=== PATIENT | male | born 1950 | race Caucasian/White ===

== ENCOUNTER → 2017-02-05 | Outpatient (CLI) | payer OTHER ==
[~2017-02-05] MED LIST: ASPCH81X PO; ATOR-22 PO; BUPR-79 PO; DIETARY SUPPLEMENT PO; FLUT50SP37 NAE; HYG/25 PO; OMEG10007 PO; PRLSR20 PO; VITAMIN E PO
[2017-02-05 18:02] LABS: BASO % 1.4 %; BASO ABS # 0.11 K/uL (0-0.2); COMPLETE YES; EOS % 5.5 %; HEMATOCRIT 44.6 % (42-52); IG% 0.3 %; LYMPH % 38.3 %; LYMPH ABS # 3.02 K/uL (1.2-3.4); MEAN CELL VOLUME 84.3 fL (80-100); MEAN CORPUSCULAR HEMOGLOBIN 28.4 pg (25-34); MEAN CORPUSCULAR HGB CONC 33.6 g/dl (32-36); MEAN PLATELET VOLUME 9.6 fL (7.4-10.4); MONO % 12.7 %; NEUT % 41.8 %; PLATELET COUNT 226 K/uL (130-400); RED BLOOD COUNT 5.29 M/uL (4.7-6.1); WHITE BLOOD COUNT 7.88 K/uL (4.8-10.8)
[2017-02-05 18:31] LABS: ALT/SGPT 32 U/L (12-78); AST/SGOT 22 U/L (15-37); BLOOD UREA NITROGEN 16 mg/dl (7-18); BUN/CREATININE RATIO 17.8 (10-20); CALCIUM 10.2 mg/dl (8.5-10.1); CARBON DIOXIDE 31 mmol/L (21-32); CHLORIDE 104 mmol/L (98-107); CHOLESTEROL 163 mg/dl (0-200); CREATININE 0.89 mg/dl (0.60-1.40); GLUCOSE 89 mg/dl (70-99); POTASSIUM 3.5 mmol/L (3.5-5.1); SODIUM 140 mmol/L (136-145)
[2017-02-05 18:35] LABS: CHOLESTEROL/HDL RATIO 2.5; HDL CHOLESTEROL 66 mg/dl; LDL CHOLESTEROL CALCULATED 87 mg/dl; TRIGLYCERIDES 48 mg/dl (0-150); VERY LOW DENSITY LIPOPROT CALC 10 mg/dl
== END | disposition home or self-care (01) ==
LOC: C.LAB 17:07
PROVIDERS: ATTEND Physician Assistant
DX: K21.9 Gastro-esophageal reflux disease without esophagitis (principal)